=== PATIENT | male | born 1965 | race Caucasian/White ===

== ENCOUNTER 2021-12-06 15:16 | Outpatient (CLI) | payer BC, SELFPAY ==
[2021-12-06 18:05] LABS: Chloride* 102 mmol/L (96-114)
[2021-12-06 18:06] LABS: Potassium* 5.2 mmol/L (3.6-5.1); Sodium* 138 mmol/L (135-149)
[2021-12-06 18:08] LABS: Blood Urea Nitrogen* 16 mg/dL (7-30); Carbon Dioxide* 29 mmol/L (20-32); Cholesterol* 205 mg/dL (90-199); Creatinine* 1.3 mg/dL (0.5-1.5); Estimated Glomerular Filt Rate 65 ml/min
[2021-12-06 18:09] LABS: Calcium* 9.6 mg/dL (8.4-10.6); Glucose* 83 mg/dL (60-115); HDL Cholesterol* 66 mg/dL (>=40); LDL Cholesterol Calculated 113 mg/dL (<100); Triglycerides* 130 mg/dL (40-149)
[2021-12-06 18:37] LABS: PSA Screen* 1.43 ng/mL (0.10-4.00)
== END 2021-12-06 15:17 | disposition home or self-care (01) ==
PROVIDERS: PCP Family Medicine; Visit Provider Family Medicine
DX: E78.5 Hyperlipidemia, unspecified (principal); I25.10 Atherosclerotic heart disease of native coronary artery without angina pectoris; I51.3 Intracardiac thrombosis, not elsewhere classified; Z12.5 Encounter for screening for malignant neoplasm of prostate
CPT/HCPCS: 80048; 80061; 84153

== ENCOUNTER 2021-12-31 16:24 | Emergency (ER) | payer BC, SELFPAY ==
[2021-12-31 16:30] VITALS: BP 153/88; PULSE 74; RESP 20; TEMP 35.9; O2SAT 99; BMI 23.7
--- NOTE | 2021-12-31 16:40 | CRLHL7_ITS ---
For Patients: As a result of the Century Cures Act, medical imaging exams and procedure reports are released immediately into your electronic medical record. You may view this report before your referring provider. If you have questions, please contact your health care provider. Indication: Trauma. Technique: Right foot 3 views. Comparison: None. Findings/Impression: Bones: Acute transverse nondisplaced fracture present the proximal right 2nd metatarsal. No other osseous abnormality. Joint spaces: Unremarkable. Soft tissues: Unremarkable. Dictated by Osmar Méndez MD @ 12/31/2021 5:56:35 PM (Electronically Signed)
--- NOTE | 2021-12-31 16:54 | ED.GENADULT ---
HPI - General Adult General Chief complaint: Lower Extremity Swelling Stated complaint: Right foot injury Time Seen by Provider: 12/31/21 16:35 Source: patient History of Present Illness HPI narrative: Patient is a 56-year-old male here for evaluation of right foot pain. He says the ladder which was leaning up against the house tipped over and landed on his right foot. His left foot is fine. He has pain and swelling over the top of the midfoot. He has been walking on his heel since then. No other injuries or complaints. Related Data Home Medications Medication Instructions Recorded Confirmed multivitamin (Multiple Vitamins 1 tab PO QDAY 12/06/21 01/04/22 tablet) Previous Rx's Medication Instructions Recorded atorvastatin 80 mg tablet 80 mg PO .Bedtime #90 tabs 12/06/21 metoprolol succinate 50 mg 50 mg PO DAILY #90 tabs 12/06/21 tablet,extended release 24 hr nitroglycerin 0.4 mg sublingual 0.4 mg sublingual Q5-15M PRN chest 12/06/21 tablet pain #25 tabs rivaroxaban 20 mg tablet 20 mg PO DAILY #90 tabs 12/06/21 Allergies Allergy/AdvReac Type Severity Reaction Status Date / Time No Known Allergies Allergy Verified 01/04/22 13:16 Review of Systems Status of ROS: Reports: 6 or more systems reviewed and unremarkable except as noted in History and below [facility] Medical History History of cerebrovascular accident (CVA) due to embolism Surgical History History of cervical spinal arthrodesis History of coronary artery stent placement History of shoulder surgery (12/08/16) Social History Narrative: alcohol abuse Smoking Status: Never smoker Do you use any of these nicotine containing products: None How often do you have a drink containing alcohol: 2-3 times a week How many standard drinks containing alcohol do you have on a typical day: 3 or 4 How often do you have six or more drinks on one occasion: Less than monthly AUDIT-C Alcohol total score: 5 Non-prescribed substance use: marijuana (any form) Exam Narrative: Exam Narrative: Vital signs reviewed General, an alert, nontoxic male, lying in bed. Head: Normocephalic, atraumatic. Neck: Supple. Extremities: Left lower extremities atraumatic. On the right, the foot is swollen over the midfoot. Diffusely tender. No tenderness on the plantar aspect of the foot. Dorsalis pedis pulses intact. Ankle is nontender. Lower leg is nontender. Skin: Warm and dry. Intact. Const: Vital Signs, click to edit/add: Vital Signs - 24 hr 12/31/21 16:30 Temperature 96.7 F L Pulse Rate [Left P ulse Oximeter] 74 Respiratory Rate 20 Blood Pressure [Le ft Upper Arm] 153/88 H Pulse Oximetry 99 Oxygen Delivery Me thod Room Air Documenting provider has reviewed patient's vital signs: yes Course Course Hospital Course: X-rays of the right foot show by my review a nondisplaced fracture of the 2nd metatarsal. No other fractures seen on x-ray. Reviewed with him that x-rays do not always show all injuries initially. For now put him in a cam walker, crutches, weight-bearing as tolerated. Orthopedic followup. Ibuprofen or Tylenol as needed. Vital Signs Vital signs: Initial Vital Signs Temperature 96.7 F L 12/31/21 16:30 Temperature Source Temporal Artery Scan 12/31/21 16:30 Pulse Rate 74 12/31/21 16:30 Respiratory Rate 20 12/31/21 16:30 Blood Pressure 153/88 H 12/31/21 16:30 Blood Pressure Mean 109 12/31/21 16:30 Pulse Oximetry 99 12/31/21 16:30 Oxygen Delivery Method 12/31/21 16:30 Vital Signs Temperature 96.7 F L 12/31/21 16:30 Pulse Rate 74 12/31/21 16:30 Respiratory Rate 20 12/31/21 16:30 Blood Pressure 153/88 H 12/31/21 16:30 Pulse Oximetry 99 12/31/21 16:30 Oxygen Delivery Method 12/31/21 16:30 Temperature 96.7 F L 12/31/21 18:48 Pulse Rate 74 12/31/21 18:48 Respiratory Rate 20 12/31/21 18:48 Blood Pressure 153/88 H 12/31/21 18:48 Pulse Oximetry 99 12/31/21 16:30 Oxygen Delivery Method 12/31/21 16:30 Discharge Plan Discharge Clinical Impression: Fracture of metatarsal of right foot, closed Patient Disposition: Home, Self-Care Condition: Stable Instructions: Foot Fracture in Adults (ED) Additional Instructions: Ibuprofen or Tylenol as needed. Use the crutches, weight bear as tolerated, orthopedic follow-up next week: [facility] in [place] ([address] [place] [address]) [address] Quinn on 01/04/22 at 1:10pm. Prescriptions: No Action multivitamin [Multiple Vitamins] Tablet 1 tab PO QDAY atorvastatin 80 mg tablet 80 mg PO .Bedtime Qty: 90 3RF metoprolol succinate 50 mg tablet extended release 24 hr 50 mg PO DAILY Qty: 90 3RF nitroglycerin 0.4 mg tablet, sublingual 0.4 mg sublingual Q5-15M PRN (Reason: chest pain) Qty: 25 1RF Rx Instructions: MAX 3 DAYS. rivaroxaban 20 mg tablet 20 mg PO DAILY Qty: 90 3RF Rx Instructions: WITH MEAL Follow Up/Referrals: Ernesto Miles MD [Primary Care Provider] - Stand Alone Forms: [facility] Info Instructions
[2021-12-31 18:48] VITALS: BP 153/88; PULSE 74; RESP 20; TEMP 35.9
== END 2021-12-31 18:51 | disposition home or self-care (01) ==
LOC: ED 18:48
PROVIDERS: Emergency Provider Emergency Medicine; PCP Family Medicine
DX: S92.504A Nondisplaced unspecified fracture of right lesser toe(s), initial encounter for closed fracture (principal); W22.8XXA Striking against or struck by other objects, initial encounter
CPT/HCPCS: 73630; 99283

== ENCOUNTER 2022-11-18 13:55 | Emergency (ER) | payer BC, SELFPAY ==
[2022-11-18] VITALS (74 sets, daily range): BP systolic 77–133; BP diastolic 52–102; PULSE 64–248; RESP 10–40; TEMP 36.1; O2SAT 93–100
--- NOTE | 2022-11-18 | CRLHL7_ITS ---
For Patients: As a result of the Century Cures Act, medical imaging exams and procedure reports are released immediately into your electronic medical record. You may view this report before your referring provider. If you have questions, please contact your health care provider. INDICATION: Erect take heartbeat, fatigue, heart surgery 3 days ago TECHNIQUE: Chest 1 views COMPARISON: August 01, 2019 single-view chest FINDINGS: Cardiovascular and mediastinum: Heart size and vasculature are normal in caliber and appearance. New sternotomy wires Lungs and pleural spaces: Lungs are clear. No sign of infiltrate or mass. No sign of pleural effusion. No pneumothorax. Bones and soft tissues: Stable deformity mid right clavicle compatible with remote healed fracture. Postoperative change/metallic fusion plate at the cervicothoracic junction, otherwise no significant findings. IMPRESSION: No acute findings, interval postoperative change, otherwise and no significant changes from the prior exam. Dictated by Derrick Capone MD @ 11/18/2022 3:13:06 PM (Electronically Signed)
[2022-11-18] MEDS: 0.9 % SODIUM CHLORIDE 1000 ml 1,000 ML IV ×2 (14:00→14:08)
[2022-11-18] MEDS: ADENOSINE 6 MG/2ML INJ IVP (14:15)
[2022-11-18] MEDS: ADENOSINE 6 MG/2ML INJ 12 MG IVP (14:18)
[2022-11-18 14:23] LABS: Troponin, Point-of-Care* 0.09 ng/ml (0.01-0.04)
[2022-11-18 14:24] LABS: Basophils Percent Auto 0.2 % (0.0-3.0); Eosinophils Percent Auto 0.4 % (0.0-7.0); Hemoglobin* 17.2 gm/dL (13.5-17.5); Lymphocytes Percent Auto 19.9 % (20-44); Mean Corpuscular HGB Conc 34 gm/dL (32-36); Mean Corpuscular Hemoglobin 32 pg (26-34); Mean Corpuscular Volume 92 fL (80-100); Monocytes Percent Auto 6.9 % (0.0-11.0); Neutrophils Percent Auto 71.6 % (42.0-72.0); Platelet Count* 337 K/uL (140-440); Red Blood Count 5.46 m/uL (4.30-5.90); White Blood Count* 13.47 K/uL (4.50-11.00)
[2022-11-18 14:28] LABS: Slide Review Reflex No
[2022-11-18] MEDS: ETOMIDATE 2 MG/ML inj 15 MG IVP (14:28)
--- NOTE | 2022-11-18 14:31 | PC.NURSE ---
syncronized cardioversion successful at second attempt, first with 120j then 200j,
[2022-11-18 14:33] LABS: Chloride* 104 mmol/L (96-114)
[2022-11-18 14:34] LABS: Potassium* 4.1 mmol/L (3.6-5.1); Sodium* 137 mmol/L (135-149)
[2022-11-18] MEDS: MIDAZOLAM HCL 1 MG/ML inj IVP (14:34)
[2022-11-18] MEDS: AMIODARONE 50 MG/ML inj 150 MG in 5 % DEXTROSE 100 ML 100 ML 618 MG IVPB (14:34)
[2022-11-18 14:36] LABS: Creatinine* 1.8 mg/dL (0.5-1.5); Estimated Glomerular Filt Rate 44 ml/min; Partial Thromboplastin Time* 23 Seconds (23-33)
--- NOTE | 2022-11-18 14:36 | PC.NURSE ---
pt shivering, versed given, starting to arouse
[2022-11-18 14:37] LABS: Blood Urea Nitrogen* 14 mg/dL (7-30); Calcium* 9.6 mg/dL (8.4-10.6); Carbon Dioxide* 18 mmol/L (20-32); D Dimer Quantitative* 1.47 ug/ml (0.00-0.50); Glucose* 107 mg/dL (60-115)
--- NOTE | 2022-11-18 14:44 | PC.NURSE ---
pt awake, alert, and oriented, vss, states, I feel sleepy, pt resting, vss
[2022-11-18 14:49] LABS: NT Pro B Type NatriureticPept* 818 pg/mL
--- NOTE | 2022-11-18 15:21 | PC.NURSE ---
sleeping, pt arouses easily to voice
[2022-11-18 15:22] LABS: Magnesium* 2.2 mg/dL (1.5-2.6)
--- NOTE | 2022-11-18 15:23 | PC.NURSE ---
pt voided via urinal, urine sent to lab
--- NOTE | 2022-11-18 15:30 | ED.ARRPALP ---
HPI - Arrhythmia/Palpitations General Date Seen: 11/18/22 Chief Complaint: Arrhythmia/Palpitations Stated Complaint: possible heart attack or stroke Time Seen by Provider: 11/18/22 13:59 Source: patient Mode of arrival: ambulatory Limitations: no limitations History of Present Illness HPI narrative: Patient is a 57-year-old gentleman who walked into the emergency room, with approximately a 1 hour history of feeling unwell, he said he knew he was feeling unwell when he took his blood pressure. That gave him any E 5 error message. Is approximately 45 minutes away, and drove here at speed limit to the emergency room. He did stop in [place]. He was feeling very nauseous, he did not have any chest pain, mild shortness of breath, and sweaty. He does present here with a heart rate of 244. So wide tachycardia, that appears to be monomorphic. He has never had this before, but there is a history of a previous stent placement in 2011, and then cardiac surgery for aneurysm unspecified and thrombectomy. complaint: rapid heart beat, heart racing and skipped beats Onset (ago): hour(s) Duration: constant Severity: moderate Context: occurred during rest and occurred during exertion Associated symptoms: shortness of breath, nausea and diaphoresis Related Data Home Medications Medication Instructions Recorded Confirmed multivitamin (Multiple Vitamins 1 tab PO QDAY 12/06/21 11/18/22 tablet) Previous Rx's Medication Instructions Recorded atorvastatin 80 mg tablet 80 mg PO .Bedtime #90 tabs 12/06/21 metoprolol succinate 50 mg 50 mg PO DAILY #90 tabs 12/06/21 tablet,extended release 24 hr rivaroxaban 20 mg tablet 20 mg PO DAILY #90 tabs 12/06/21 nitroglycerin 0.4 mg sublingual See Rx Instructions .Route 02/10/22 tablet .COMPLEX #25 tabs Allergies Allergy/AdvReac Type Severity Reaction Status Date / Time No Known Allergies Allergy Verified 03/06/22 09:02 Review of Systems Status of ROS: Reports: 10 or more systems reviewed and unremarkable except as noted in History and below [facility] Medical History History of cerebrovascular accident (CVA) due to embolism ?Z86.73 - Personal history of transient ischemic attack (TIA), and cerebral infarction without residual deficits (ICD-10) Surgical History History of shoulder surgery (12/08/16) ?Z98.890 - Other specified postprocedural states (ICD-10) History of coronary artery stent placement ?Z95.5 - Presence of coronary angioplasty implant and graft (ICD-10) History of cervical spinal arthrodesis ?Z98.1 - Arthrodesis status (ICD-10) Social History Narrative: alcohol abuse Smoking Status: Never smoker Do you use any of these nicotine containing products: None How often do you have a drink containing alcohol: 2-3 times a week How many standard drinks containing alcohol do you have on a typical day: 3 or 4 How often do you have six or more drinks on one occasion: Less than monthly AUDIT-C Alcohol total score: 5 Non-prescribed substance use: marijuana (any form) Exam Narrative: Exam Narrative: Patient is initially seen in room 8, he appears to be have a regular rhythm at 244. Speaking to me normally alert and oriented x3, with the blood pressure that was reassuring initially. Little bit pale, pupils equal round reactive to light his TMs are normal his oropharynx is normal his chest is clear bilaterally with easy respirations heart sounds are very fast, but I do not hear any walk been murmurs. Abdomen is soft, there is no tenderness to palpation, moves all extremities independently and well, with some dirt on his right knee. Pulses are very rapid, and thready. Two IVs were initially started, he is placed on the disability insurance hearing officer, given oxygen, defibrillation pads are placed, along with the defibrillator. IV normal saline bolus was started. And he was given adenosine 6 and 12 mg with no change in his rhythm at all. Previously to this I did have him bear down and try to do a vagal maneuver with no change. At this point his blood pressure did drop into the 80 on 40 range. And he was complaining of some visual dimmimg, my initial thought was to give amiodarone 150 mg as he was stable but with this change he became unstable. I did get, the other ED doctor into the room to do my sedation. We gave him etomidate. And were able to shock him x2 with 200 joules, back to normal sinus rhythm with occasional PVCs, currently is getting amiodarone 150 mg IV. I was able to speak to [facility], as [facility] Gallegos was on divert. I spoke to Cardiology there, and they accepted him to their with a diagnosis of ventricular tachycardia. Improved. Const: Vital Signs, click to edit/add: Vital Signs - 24 hr 11/18/22 14:01 Temperature 97.0 F L Pulse Rate [Pulse Oximeter] 248 H Respiratory Rate 16 Blood Pressure [Le ft Upper Arm] 107/90 H Pulse Oximetry 97 Oxygen Delivery Me thod Room Air Course Course Hospital Course: Spoke to Dr. Gallardo at [facility], she accepted in transfer, discussed with Mono, he is doing fine now. Vital Signs Vital signs: Initial Vital Signs Respiratory Effort Normal, Spontaneous 11/18/22 14:00 Respiratory Depth Normal 11/18/22 14:00 Respiratory Pattern Normal 11/18/22 14:00 Vital Signs Temperature 97.0 F L 11/18/22 14:01 Pulse Rate 248 H 11/18/22 14:01 Respiratory Rate 16 11/18/22 14:01 Blood Pressure 107/90 H 11/18/22 14:01 Pulse Oximetry 97 11/18/22 14:01 Oxygen Delivery Method Room Air 11/18/22 14:01 Temperature 97.0 F L 11/18/22 14:01 Pulse Rate 248 H 11/18/22 14:01 Respiratory Rate 16 11/18/22 14:01 Blood Pressure 107/90 H 11/18/22 14:01 Pulse Oximetry 97 11/18/22 14:01 Oxygen Delivery Method Room Air 11/18/22 14:01 MDM - Arrhythmia/Palpitations MDM Narrative Medical decision making narrative: Differential diagnosis includes but is not limited to psychosocial stress, thyroid abnormalities, CHF, SVT, atrial fibrillation, ventricular tachycardia and ventricular fibrillation. This includes the life-threatening complications of heart failure, V-tach, and VFib Medical Records Attestation: I reviewed the patient's medical records. Lab Data Attestation: I reviewed the patient's lab results. Labs: Lab Results 11/18/22 Range/Units 14:05 WBC 13.47 H (4.50-11.00) K/uL RBC 5.46 (4.30-5.90) m/uL Hgb 17.2 (13.5-17.5) gm/dL Hct 50.0 (37.0-53.0) % MCV 92 (80-100) fL MCH 32 (26-34) pg MCHC 34 (32-36) gm/dL RDW Coeff of Fabio 12.0 (11.5-15.5) % Plt Count 337 (140-440) K/uL Neut % (Auto) 71.6 (42.0-72.0) % Lymph % (Auto) 19.9 L (20-44) % Bowie % (Auto) 6.9 (0.0-11.0) % Eos % (Auto) 0.4 (0.0-7.0) % Baso % (Auto) 0.2 (0.0-3.0) % Neut # (Auto) 9.60 H (1.7-7.0) K/uL Lymph # (Auto) 2.70 (0.90-2.90) K/uL Bowie # (Auto) 0.90 (0.00-0.90) K/UL Eos # (Auto) 0.10 (0.00-0.50) K/uL Baso # (Auto) 0.00 (0.00-0.30) K/uL Abs Immat Gran (auto) 0.10 (0.00-0.30) K/uL Imm/Tot Granulo (auto) 1.0 % APTT 23 (23-33) Seconds D-Dimer Quant (PE/DVT) 1.47 H (0.00-0.50) ug/ml Sodium 137 (135-149) mmol/L Potassium 4.1 (3.6-5.1) mmol/L Chloride 104 (96-114) mmol/L Carbon Dioxide 18 L (20-32) mmol/L BUN 14 (7-30) mg/dL Creatinine 1.8 H (0.5-1.5) mg/dL Estimated GFR 44 ml/min Glucose 107 (60-115) mg/dL Calcium 9.6 (8.4-10.6) mg/dL Magnesium 2.2 (1.5-2.6) mg/dL NT-Pro-B Natriuret Pep 818 pg/mL POC Troponin I 0.09 H (0.01-0.04) ng/ml Imaging Data Chest x-ray: Attestation: I have reviewed the pertinent imaging results. My impression: Portable chest shows no acute findings. ECG Data Attestation: I personally reviewed and interpreted this ECG as follows: Prior ECG tracings: available for review Interpretation: EKG shows monomorphic rapid wide base tachycardia 244. Repeat EKG after defibrillation shows normal sinus rhythm, with no acute ST wave changes. Critical Care Time Critical Care Time Critical Care Time: Yes Attestation: The patient required my highest level preparedness to intervene emergently and I personally spent this critical care time directly and personally managing the patient. This critical care time included: Obtaining a history; Examining the patient; Pulse oximetry; Ordering and reviewing of studies; Arranging urgent treatment with development of a management plan; Evaluation of patients response to treatment; Frequent reassessment discussions with other providers. This critical care time was performed to assess and manage the high probability of imminent life-threatening deterioration that could result in multiorgan failure. It was exclusive of separate billable procedures and treating other patients and teaching time. Total Critical Care Time in Minutes: 60 Discharge Plan Discharge Clinical Impression: Ventricular tachycardia Patient Disposition: [facility] Discharge Location: [facility] Condition: Improved
[2022-11-18 16:06] LABS: Lactate* 4.2 mmol/L (0.5-1.9)
[2022-11-18 16:28] LABS: INR 0.99 (0.91-1.10); Prothrombin Time 13.7 Seconds
[2022-11-18 16:29] LABS: Partial Thromboplastin Time* 24 Seconds (23-33)
[2022-11-18 16:32] LABS: D Dimer Quantitative* 1.35 ug/ml (0.00-0.50)
[2022-11-18 16:32] LABS: Amphetamine Screen Urine Negative (Negative); Barbiturate Screen Urine Negative (Negative); Benzodiazepines Screen Urine Negative (Negative); Cannabinoid Screen Urine POSITIVE (Negative); Cocaine Screen Urine Negative (Negative); Methadone Screen Urine Negative (Negative); Methamphetamines Screen Urine Negative (Negative); Opiate Screen Urine Negative (Negative); Oxycodone Screen Urine Negative (Negative); Phencyclidine Screen Urine Negative (Negative); Tricyclic Antidepressant Urine Negative (Negative)
--- NOTE | 2022-11-18 16:35 | PC.NURSE ---
pt has some vague recall of events before and after cardioversion, asking what all happened, pt reoriented and seems to understand, agreeable with plan to transfer
[2022-11-18 16:52] LABS: C Reactive Protein* < 0.5 mg/dL (0.5-1.0)
[2022-11-18 16:53] LABS: Ethanol* < 0.01 % (0.01-0.03)
--- NOTE | 2022-11-18 18:05 | PC.NURSE ---
pt left en route to [facility] via EMS, VSS, report given to Terri at [facility] [phone]
== END 2022-11-18 18:05 | disposition short-term general hospital (02) ==
PROVIDERS: Emergency Provider Family Medicine; PCP Family Medicine
DX: I47.20 Ventricular tachycardia, unspecified (principal)
CPT/HCPCS: 36415; 71045; 80048; 80306; 82077; 83605; 83735; 83880; 84484; 85025; 85379; 85610; 85730; 86140; 92960; 93005; 94761; 96365; 96375; 99152; 99285; 99291; J0153; J0282; J2250; J7030

== ENCOUNTER 2022-11-18 17:52 | Outpatient (CLI) | payer BC, SELFPAY | END 2022-11-18 17:53 | disposition home or self-care (01) | LOC: AMB 11-21 10:17 | PROVIDERS: PCP Family Medicine; Visit Provider Family Medicine | DX: R00.0 Tachycardia, unspecified (principal) | CPT/HCPCS: A0425; A0426; A0427 ==

== ENCOUNTER 2024-07-15 11:14 | Outpatient (CLI) | payer BC, SELFPAY | END 2024-07-15 11:15 | disposition home or self-care (01) | PROVIDERS: PCP Family Medicine; Visit Provider Family Medicine | DX: E78.5 Hyperlipidemia, unspecified (principal); Z13.1 Encounter for screening for diabetes mellitus; Z12.5 Encounter for screening for malignant neoplasm of prostate | CPT/HCPCS: 80048; G0103 ==

== ENCOUNTER 2024-09-30 13:00 | Outpatient (RCR) | payer BC, SELFPAY ==
--- NOTE | 2024-08-12 15:01 | PT.OPE ---
PT [facility] Outpatient Eval PT [facility] Outpatient Eval Start: 08/12/24 08:01 Freq: Status: Active Protocol: Document 08/12/24 08:02 LSL (Rec: 08/12/24 09:03 LSL [id number]) E-signed By Rody Schmitt PT Physical Therapy Outpatient Evaluation Insurance Information Recert Due Date 11/10/24 Insurance Name Medicaid,Blue Cross/[employer] Medical Diagnosis back pain M54.9 Treating Diagnosis pain, impaired ROM, impaired mobility, weakness Referring MD Benoit Subjective Preferred Name Mono Llamas Pt. reports he was lifting some boxes 30-40 pounds and he picked up some boxes and turned to his left. He had immediate onset of shooting pain from his low back into both legs. The pain radiated to his knees and he saw stars. Pt. was given Toradol and a muscle relaxer, but it out of those now. It's worst in the mornings. Gets a little better as the day goes on unless I sit still then I get stiff again. Pt. is avoiding activities because he is afraid he is going to hurt. Tylenol currently helps minimize pain. Pt. wants to be able to mow his lawn which takes 2.5 hours on a rider and weed whip which is heavier. PMH: Pacemaker placed 4-5 y/a due atrial fib, C5-7 fusion 6- 7 y/a, open heart surgery removed embolism after 3 L CVAs, then had one more R CVA Pain Comments 5/10 worst, 0/10 best Date of Last Physician Visit 07/30/24 Current Work Status Retired Precautions Treatment Precautions/Contraindications PACEMAKER Weight Bearing Status Full Weight Bearing Therapy Limitations/Systems Review Not Limited Objective Range of Motion AROM - flexion distal quads with pain, RLF 75% with pain L lumbar, LLF 50% with pain R, extension 25%, R rotation 30% with pain, L rotation 50% with pain PROM - PPU 40% with pain, B SKC and DKC 75% without pain Strength Ankle - extensor hallucis 5/5, DF 5/5 Knee - L HS 4+/5, L 5/5, B quads 5/5 Hip - R hip flexion 5/5, L 4+/ 5, abd 5/5, extension 3+/5 Trunk - upper abdominals 2+/5 with pain, extensors 2-/5 with pain Palpation R lumbar paraspinals, L lower lumbar paraspinals, R glut med , B QL Posture Decreased lordosis Sensation/Reflexes Reflexes - B patellar 3/3, R achilles 2/3, L achilles 3/3 SLR - + L 40, + R 45 Other/Pertinent Objective Joint Play - all lumbar PAs tender and immobile due to guarding worse L3-5, UPAs tender and 1/6 due to guarding Assessment Assessment/Impression Pt. is a 59 y/o who presents with newer onset acute LBP with muscle guarding and radicular pain. He has known history of cervical fusion and multiple heart conditions and CVAs. He presents with likely nerve compression that is resolving with time but is still very guarded muscularly and in his movement patterns. He will benefit from PT to improve his ROM and core strength which is currently poor. Treatment will consist of therex, NM re-ed, manual therapy and potentially dry needling if guarding doesn't subside with initial treatment . Primary Functional Limitations walking, lifting, twisting Plan of Care Rehabilitation Potential Good Physical Therapy Goals SHORT TERM GOALSL (4 weeks) 1. Pt. understands how to activate TA for spinal support in activities that cause an increase in pain. 2. Pt. to demonstrate 3/5 abdominal and back extensor strength. 3. Pt. to have 75% AROM with pain less than 3/10 to make putting socks and shoes on easier. ASSISTED GOALS: (8 weeks) 1. Pt. able to lift 30 pounds floor to waist with pain less than 3/10. 2. Pt. able to rotate freely with pain less than 3/10. Coordination/Communication With Referral Source Treatment Plan/Direct Interventions Dry Needling,Joint Mobilization,Manual Therapy, Neuromuscular Re-ed, Therapeutic Exercises Frequency/Duration 2x/week 6 weeks Patient Will Be Discharged From Therapy Completion of LTG(s),Skills Plateau,Independent w/HEP, Independently Progressing Evaluation Billing Untimed Code Treatment Minutes 40 Complexity Moderate Certification Information Initial Certification Date 08/12/24 Ending Certification Date 11/10/24 Provider Signature Required Yes Provider Signature Shows Agreement With POC & Medical Necessity Physician NPI Number Write NPI# Here Physician Comment/Change : Physician Signature & Date Requested Please Sign/Date Here
== END 2024-11-12 15:39 | disposition home or self-care (01) ==
PROVIDERS: PCP Family Medicine; Visit Provider Physician Assistant Medical
DX: M54.9 Dorsalgia, unspecified (principal); Z51.89 Encounter for other specified aftercare
CPT/HCPCS: 97110; 97140; 97162

== ENCOUNTER 2024-12-14 08:09 | Emergency (ER) | payer BC, SELFPAY ==
[2024-12-14] VITALS (7 sets, daily range): BP systolic 123–133; BP diastolic 75–96; PULSE 51–64; RESP 20; TEMP 36.4; O2SAT 94–98; BMI 23.2
--- OUTSIDE RECORDS SUMMARY | 2024-12-14 08:12 | XMS_ITS | Clinical Summary ---
Author Organization [facility] Address [address] [place] [address] Care Team Providers Care Injection Maintenance Technician Name Role Phone Elsewhere, Pcp Primary Care Provider Unavailabl e Source Comments Patient records contain information from all sites at [facility]. For routine questions regarding patient records, call [phone] during business hours, M-F 8:00 AM - 5:00 PM Central Time. Record requests for emergency care only can be directed to [phone] at any time.[facility] Allergies No known active allergies Medications * This document contains information received from the source organization and may not represent a complete record from that organization. nitroglycerin (NITROSTAT) 0.[address] 0.4 mg under the tongue every 5 (five) minutes as needed. Do not exceed a total of 3 doses in 15 minutes. 0 Active losartan (COZAAR) 25 mg tablet Take 1 tablet (25 mg total) by mouth daily. 0 Active acetaminophen (TYLENOL) 500 mg tablet Take 1,000 mg by mouth every 6 (six) hours as needed for pain. Active multivitamin-mi qwdcmd-BL-cwlnu hallie-lutein (CENTRUM SILVER) 0.4-300-250 mg-mcg-mcg tablet Take 1 tablet by mouth daily. Active sennosides-docu sate sodium (SENOKOT-S) 8.6-50 mg per tablet Take 1 tablet by mouth 2 (two) times a day. 1 Active rivaroxaban (XARELTO) 10 mg tablet Take 2 tablets (20 mg total) by mouth daily. Take to minimize the risk for developing a blood clot. After your last dose of this medication start taking aspirin if this was recommended. Take with food 180 tablet 3 1 Active aspirin 81 mg chewable tablet Chew 81 mg. 1 Active metoprolol succinate (TOPROL-XL) 50 mg 24 hr tablet Take 50 mg by mouth. 1 Active multivitamin tablet Take 1 tablet by mouth daily. 1 Active predniSONE (DELTASONE) 20 mg tablet Twice A Day 1 Active Active Problems Problem Noted Date Diagnosed Date Cardiomyopathy Ischemic 05/12/2020 Atrial Fibrillation Paroxysmal 05/12/2020 Stenosis Spinal Cervical 05/10/2020 Overview (05/10/2020): Added automatically from request for surgery [id number] Radiculopathy Cervical Seventh 05/07/2020 Nicotine Dependence 05/07/2020 Hypertension Essential Primary 03/03/2020 Hyperlipidemia Mixed 03/03/2020 Halfway (Current) Anticoagulant Treatment 02/08 Cerebral Infarction Due To E mbolism Left Middle Cerebral Artery 06/28/2017 Overview (05/12/2020): Secondary to LV thrombus without any neurological deficits. Found in the left insular teritory of the left MCA ST Elevation Myocardial Infarction Of Unspecifie d Site 01/29/2012 Overview (05/12/2020): 01/27/12- FREDDIE/ thrombectomy pLAD Pain Shoulder Right Resolved Problems Problem Noted Date Diagnosed Date Resolved Date Stroke 05/12/2020 05/12/2020 COVID-19 Infection 03/06/2020 1 Bradycardia 03/04/2020 05/12/2020 Pneumonia Due To COVID-19 03/03/2020 Hypoxia 03/02/2020 05/12/2020 Immunizations Immunization Administration Dates Next Due influenza vaccine quad (FLUZ ONE/FLUARIX) (6 months and older)(PF) 05/14/2020 Family History Medical History Relation Name Comments Throat cancer Father 1 Coronary artery disease Father 2 hari Hyperlipidemia Father 2 hari he Dec 0 2005 Relation Name Status Comments Father 1 Father 2 hari Social History Tobacco Use Types Packs/Day Years Used Date Smoking Tobacco: Never Cigarettes Smokeless Tobacco: Former Chew Quit: 10/25/2023 Comments:Has not been smokin g lately Alcohol Use Standard Drinks/Week Comments Not Currently 6 (1 standard drink = 0.6 oz pur e alcohol) Been sober for 1651 days [facility] Utilities Answer Date Recorded In the past 12 months has th e electric, gas, oil, or water company threatened to shut off services in your home? No 07/09/2024 Humiliation, Afraid, Rape, and Kick questionnair e Answer Date Recorded Within the last year, have y ou been afraid of your partner or ex-partner? No 05/06/2021 Within the last year, have y ou been humiliated or emotionally abused in other ways by your partner or ex-partner? No Within the last year, have y ou been kicked, hit, slapped, or otherwise physically hurt by your partner or ex-partner? No 05/06/2021 Within the last year, have y ou been raped or forced to have any kind of sexual activity by your partner or ex-partner? No 05/06/2021 Hunger Vital Sign Answer Date Recorded Within the past 12 months, y ou worried that your food would run out before you got the money to buy more. Never true 07/10/19 25 Within the past 12 months, t he food you bought just didn't last and you didn't have money to get more. Never true 07/09/2024 PRAPARE - Transportation Answer Date Re corded In the past 12 months, has l ack of transportation kept you from medical appointments or from getting medications? No 05/2024 In the past 12 months, has l ack of transportation kept you from meetings, work, or from getting things needed for daily living? No 07/09/2024 Housing Stability Answer Date Recorded What is your living situation today? I have a [facility] place to live 07/09/2024 Education Answer Date Recorded What is the highest level of school you have completed or the highest degree you have received? Associate degree: occupational, technical, or vocational program 05/12/2020 Sex and Gender Information Value Date Recorded Sex Assigned at Male 07/10/2024 12:51 PM CDT Legal Sex Male 9:32 PM ACADEMIC INTERVENTIONIST Gender Identity Male 06/23/2020 9:05 AM CDT Sexual Orientation Straight 07/10/2024 2: 25 PM CDT Last Filed Vital Signs Vital Sign Reading Time Taken Comments Blood Pressure 134/88 04/10/2024 2:30 PM ACADEMIC INTERVENTIONIST Pulse 54 04/10/2024 2:30 PM ACADEMIC INTERVENTIONIST Temperature 36.5 C (97.7 F) 04/10/2024 11:15 AM ACADEMIC INTERVENTIONIST Respiratory Rate 15 04/10/2024 2:30 PM ACADEMIC INTERVENTIONIST Oxygen Saturation 92% 04/10/2024 2:30 PM ACADEMIC INTERVENTIONIST Inhaled Oxygen Concentration - - Weight 68.1 kg (150 lb 2.1 oz) 02/04/2024 2:12 P M CDT Height 177.8 cm (5' 10) 02/04/2024 2:19 PM CDT Body Mass Index 21.54 02/04/2024 2:12 PM CDT Plan of Treatment Health Maintenance Due Date Last Done Comments CT Colonography 1967 Cologuard 1967 Colonoscopy 1967 Colorectal Cancer Screening 1967 FIT 1967 Hepatitis C Screening 1967 Office Visit for Blood Pressure Check / Re-check 1967 Hepatitis B Vaccines (1 of 3 - 19+ 3-dose series) 1986 Pneumococcal vaccine (50+ years) (1 of 2 - PCV) 1986 Zoster Vaccines (1 of 2) 2017 Depression Screening (Annual PHQ-2) 04/09/2024 Lipid (Cholesterol) Screening 08/03/2024 08/04/2023 COVID-19 Vaccine ( season) 2024 Influenza Vaccine (#1) 2024 05/14/2020 Creatinine Level (Kidney Function Test) 06/26/2025 06/26/2024, 04/10/2024, 02/04/2024, Additional history exists Potassium Level 06/26/2025 06/26/2024, 05/2024, 02/04/2024, Additional history exists Sodium Level 06/26/2025 06/26/2024, 05/2024, 02/04/2024, Additional history exists Fasting Glucose for Diabetes Screening 06/27/2027 06/26/2024, 04/10/2024, 02/04/2024, Additional history exists DTaP,Tdap,and Td Vaccines (3 - Td or Tdap) 09/13/2029 09/14/2019, 12/21/2010 IPV Vaccines Aged Out No longer eligi ble based on patient's age to complete this topic Medical Devices Implanted Type Area Human Resources Operations Coordinator Device Identifier Shelf Expiration Date Model / Serial / Lot [facility] - [id number] - [id number] Implanted:Q ty: 1 on 05/13/2020 by Marky Newman M.D. at [facility] Bone or Tissue Anterior: Spine Cervical Medtronic 01/25/2022 [id number] / [id number] / Hardware E.G. Pins/Screws /Rods-2017 Implanted:0 10/04/2017 (Quantity not on file) Hardware e.g. pins/screws/emma s Right: Shoulder Spn Plt Tomy L2 30 - [id number] Implanted:Q ty: 1 on 05/13/2020 by Marky Newman M.D. at [facility] Hardware e.g. pins/screws/emma s Anterior: Spine Cervical Depuy Synthes [id number] / / Spn Scrw Tomy Sfdr Thrd 4x14 - [id number] Implanted:Q ty: 5 on 05/13/2020 by Marky Newman M.D. at [facility] Hardware e.g. pins/screws/emma s Anterior: Spine Cervical Depuy Synthes [id number] / / Spn Scrw Tomy Sfdr Thrd 4.5x14 - [id number] Implanted:Q ty: 1 on 05/13/2020 by Marky Newman M.D. at [facility] Hardware e.g. pins/screws/emma s Anterior: Spine Cervical Depuy Synthes [id number] / / Medtronic Hiawassee Xt Dr [id number] Implant Cardiac Defibrillator Medtronic COBALT XT / [id number] / Spn Cg Cndt Cif 6mm 8d S - [id number] Implanted:Q ty: 1 on 05/13/2020 by Marky Newman M.D. at [facility] Spine Implant Anterior: Spine Cervical Depuy Synthes [id number] / / [id number] Spn Cg Cndt Cif 6mm 8d S - [id number] Implanted:Q ty: 1 on 05/13/2020 by Marky Newman M.D. at [facility] Spine Implant Anterior: Spine Cervical Depuy Synthes [id number] / / [id number] Stent Other-02/03 Implanted:1 (Quantity not on file) Stent Other Heart Description:coronary artery stent/No card Explanted Type Area Human Resources Operations Coordinator Device Identifier Shelf Expiration Date Model / Serial / Lot Spn Bharti Leone Thrd 4x14 - [id number] Implanted:Se Marky amaya M.D. (Quantity not on file) Explanted:Qt y: 1 on 05/13/2020 by Marky Newman M.D. at [facility] Hardware e.g. pins/screws /rods Anterior: Spine Cervical Depuy Synthes [id number] / / Procedures Procedure Name Priority Date/Time Associated Diagnosis Comments BASIC METABOLIC PANEL, S/P STAT 04/10/2024 11:12 AM ACADEMIC INTERVENTIONIST from Last 3 Months or Most Recently Relevant to Health Maintenance Results * (ABNORMAL) Basic Metabolic Panel (04/10/2024 11:12 AM ACADEMIC INTERVENTIONIST) Pathologist [facility] Potassium, P 4.2 3.6 - 5.2 mmol/L 04/10/2024 11:37 AM ACADEMIC INTERVENTIONIST [facility] Sodium, P 141 135 - 145 mmol/L 04/10/2024 11:37 AM ACADEMIC INTERVENTIONIST [facility] Chloride, P 105 98 - 107 mmol/L 04/10/2024 11:37 AM ACADEMIC INTERVENTIONIST [facility] Bicarbonate, P 26 22 - 29 mmol/L 04/10/2024 11:37 AM ACADEMIC INTERVENTIONIST [facility] Anion Gap, P 10 7 - 15 04/10/2024 11:37 AM ACADEMIC INTERVENTIONIST [facility] BUN (Blood Urea Nitrogen), P 14 8 - 24 mg/dL 04/10/2024 11:37 AM ACADEMIC INTERVENTIONIST [facility] Creatinine 1.18 0.74 - 1.35 mg/dL 04/10/2024 11:37 AM ACADEMIC INTERVENTIONIST [facility] Estimated GFR (eGFR) 72 >=60 mL/min/BSA 04/10/2024 11:37 AM ACADEMIC INTERVENTIONIST [facility] Comment: Estimated GFR calculated using the 2020 CKD_EPI creatinine equation. Calcium, Total, P 9.3 8.6 - 10.0 mg/dL 04/10/2024 11:37 AM ACADEMIC INTERVENTIONIST [facility] Glucose, P 69(L) 70 - 140 mg/dL 04/10/2024 11:37 AM ACADEMIC INTERVENTIONIST [facility] Blood (Blood, Venous) 04/10/2024 11:12 AM ACADEMIC INTERVENTIONIST 04/10/2024 11:16 AM ACADEMIC INTERVENTIONIST Brandin Edwards M.D. LAB BLOOD ADD-ON Final Resul t [facility] [address] [place] [address], [facility] [place] [address] [place] [address] from Last 3 Months or Most Recently Relevant to Health Maintenance Insurance [facility] [place] [address] Advance Directives For more information, please contact: [phone] * Full Code (Latest Code Status on File) Date Activated Date Inactivated Comments 03/03/2020 12:12 PM 03/05/2020 3:41 PM Question Answer Comments Full Code: Discussed Care Teams Injection Maintenance Technician Relationship Specialty Start Date End Date Elsewhere, Pcp PCP - General Internal Medicine 06/04/19
--- OUTSIDE RECORDS SUMMARY | 2024-12-14 08:12 | XMS_ITS | Clinical Summary ---
Author Organization [facility] Address [address] [place] [id number] Care Team Providers Care Process Owner Name Role Phone Ernesto Miles MD Primary Care Provider [phone] Key Balderas CAREERS ADVISER Unavailable [phone] Allergies No known active allergies Medications nitroglycerin (NITROSTAT) 0.[address] 0.4 mg under the tongue every 5 minutes if needed. 0 Active amiodarone (CORDARONE) 200 mg tabletIndication s:life-threateni ng ventricular tachycardia Take 1 Tablet (200 mg) by mouth once daily. 30 Tablet 08/05/2023 9:05 AM CDT 4 Active rosuvastatin (CRESTOR) 20 mg tabletIndication s:Hypercholester emia Take 1 Tablet (20 mg) by mouth once daily. 90 Tablet 3 4 Active valsartan 40 mg tabletIndication s:Ventricular tachycardia (HC),Cardiomyopa thy, ischemic,Left ventricular thrombus without LA (HC),ASHD (arterioscleroti c heart disease) Take 1 Tablet (40 mg) by mouth two times daily. 180 Tablet 3 5 Active spironolactone 25 mg tabletIndication s:Ventricular tachycardia (HC),Cardiomyopa thy, ischemic,Left ventricular thrombus without LA (HC),ASHD (arterioscleroti c heart disease) Take 1/2 tablet by mouth daily 45 Tablet 3 5 Active empagliflozin (Jardiance) 10 mg tabletIndication s:Ventricular tachycardia (HC),Cardiomyopa thy, ischemic,Left ventricular thrombus without LA (HC),ASHD (arterioscleroti c heart disease) Take 1 Tablet (10 mg) by mouth once daily. 90 Tablet 3 5 Active metoprolol succinate 25 mg Sustained-Releas e tabletIndication s:Cardiomyopathy , ischemic Take 1 Tablet (25 mg) by mouth once daily. 30 Tablet 11 5 Active Eliquis 5 mg tabletIndication s:LV (left ventricular) mural thrombus TAKE 1 TABLET(5 MG) BY MOUTH TWICE DAILY 180 Tablet 5 Active apixaban (Eliquis) 5 mg tabletIndication s:LV (left ventricular) mural thrombus Take 1 Tablet (5 mg) by mouth two times daily. 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 - scheduled for excision of apical LV mass 02/28/2021 Cerebrovascular accident (CVA) 06/28/2017 Overview (02/22/2021): - CVA 2018: Secondary to LV thrombus without any neurological deficits. Found in the left insular teritory of the left MCA * started warfarin at that time - May 2020 switched to Xarelto by Hematology at [facility]: admitted not always compliant with warfarin - November 2020 2nd CVA * brain MRI on December 02, 2020: confirmed the presence of acute infarct involving the posterior left insula and cortically within the left parietal lobe; chronic appearing infarct cortically in the neck area medial aspect of the left superior frontal gyrus Headache 06/27/2017 Examination of participant i n clinical trial- [employer] Trial cardiosphere-derived stem cells 03/28/2012 HTN (hypertension) 03/28/2012 Dyslipidemia 03/28/[address] elevation myocardial infarction ([place] [facility]) 01/29/2012 Overview (01/29/2012): 01/27/12- FREDDIE/ thrombectomy pLAD Cardiomyopathy, ischemic 01/29/2012 Overview (02/22/2021): - 01/27/12- EF 35%, akinesis anterior wall/ apex - 03/12/12 CMR: EF 48% - 01/19/2021 cMRI Ischemic cardiomyopathy with severe left ventricular dysfunction, LVEF 33%. A. Normal LV volumes and apical dyskinesis (apical aneurysm). - Resolved Problems Problem Noted Date Diagnosed Date Resolved Date LV (left ventricular) mural thrombus following LA 06/27/2017 06/28/2017 Examination of participant o r control in clinical research 04/10/2012 03/30/2017 Encounters Date Type Department Care Team Description 09/23/2024 Refill [facility] [address] [place] [address] [address] [place] [address] Kain Coe MD Refill Request 09/21/2024 Refill [facility] [address] [place] [address] Senait Walker PA Refill Request (Eliquis) from Last 3 Months Immunizations Immunization Administration Dates Next Due Influenza, IIV4 05/14/2020 Tdap 09/14/2019,12/21/2010 Family History Medical History Relation Name Comments Throat cancer Father Relation Name Status Comments Father Social History Tobacco Use Types Packs/Day Years Used Date Smoking Tobacco: Never Smokeless Tobacco: Current Chew Tobacco Cessation:Counseling Given: Yes Alcohol Use Standard Drinks/Week Comments Not Currently 0 (1 standard drink = 0.6 oz pur e alcohol) 2 times / month, 3-4 drinks PHQ-2 Answer Date Recorded PHQ-2 TOTAL SCORE 1 05/03/2021 Social Connections Answer Date Recorded Do you often feel lonely or isolated from those around you? 0 08/04/2023 Financial Resource Strain Answer Date R ecorded Difficulty of Paying Living Expenses 3 08/04/2023 Difficulty of Paying Living Expenses Not on file 08/04/2023 Food Insecurity Answer Date Recorded Do you worry your food will run out before you are able to buy more? 1 08/04/2023 Transportation Needs Answer Date Record ed Does lack of transportation keep you from medica l appointments? 1 08/04/2023 Does lack of transportation keep you from work, meetings or getting things that you need? 1 08/04/2023 Housing Stability Answer Date Recorded What is your housing situation today? 1 08/04/2023 Interpersonal Safety Answer Date Record ed Are you being hit, kicked, p ushed or yelled at (see row info)? No 08/04/2023 Interpersonal Safety Abuse 12 - 18 Not on file 08/04/2023 Interpersonal Safety Ambulatory Vulnerability No t on file 08/04/2023 Utilities Answer Date Recorded Do you have trouble paying f or utilities (for example, heat, electricity, water, phone)? 1 08/04/2023 Sex and Gender Information Value Date Recorded Sex Assigned at Not on file Legal Sex Male 6:02 AM SOLAR PHOTOVOLTAIC CREW LEAD Gender Identity Not on file Sexual Orientation Not on file Obstetrics History Last Filed Vital Signs Vital Sign Reading Time Taken Comments Blood Pressure 120/86 06/30/2024 9:51 AM CDT Pulse 80 06/30/2024 9:51 AM CDT Temperature 37.1 C (98.7 F) 08/04/2023 3:52 PM CDT Respiratory Rate 16 08/04/2023 3:52 PM CDT Oxygen Saturation 98% 06/30/2024 9:51 AM CDT Inhaled Oxygen Concentration - - Weight 73.5 kg (162 lb) 06/30/2024 9:51 AM CDT Height 177.8 cm (5' 10) 06/30/2024 9:51 AM CDT Body Mass Index 23.24 06/30/2024 9:51 AM CDT Plan of Treatment Health Maintenance Due Date Last Done Comments Hepatitis B series for 19+ ( 1 of 3 - 19+ 3-dose series) 1986 Pneumococcal series for age 50+ (1 of 2 - PCV) 1986 Colonoscopy through age 75 2012 Zoster (shingles) series for age 50+ (1 of 2) 2017 Depression screening for age 12+ 04/20/2022 04/20/19, 03/10/2021 COVID-19 vaccine series ( - 2023- season) 2024 Influenza Vaccine (#1) 2024 05/14/2020 BMI (ht and wt on same day) for age 18+ 06/30/2025 06/30/2024, 01/11/2024, 04/28/2021, Additional history exists Lipids for age 45-75 08/03/2028 08/04/2023, 03/28/2012, 01/27/2012 Tetanus booster 09/13/2029 09/14/2019, 12/21/2010 RSV vaccine for adults or (1 - 1-dose 75+ series) 2042 HIV for age 15-65 Completed 03/18/2012 Hepatitis C screening for ag e 18-79 Completed 03/18/2012 Medical Devices Implanted Type Area Behavioral Geneticist Device Identifier Shelf Expiration Date Model / Serial / Lot Tissue Pericardium 6x8cm Photofix Bovine - [id number] Implanted:Qty: 1 on 02/28/2021 by Myron Vera MD at [facility] N/A: Heart [employer] 11/20/2022 PFP [id number] / / [id number] Procedures Procedure Name Priority Date/Time Associated Diagnosis Comments LIPID PANEL Early AM 08/04/2023 10:06 AM CDT ANTI HIV 1/2 Timed 03/18/2012 10:52 AM SOLAR PHOTOVOLTAIC CREW LEAD ANTI HCV Timed 03/18/2012 10:52 AM SOLAR PHOTOVOLTAIC CREW LEAD from Last 3 Months or Most Recently Relevant to Health Maintenance Results * (ABNORMAL) Lipid Panel (08/04/2023 10:06 AM CDT) CHOLESTEROL,TOTAL 239(H) 100 - 199 mg/dL 08/04/2023 11:15 AM [facility] Comment: Cholesterol, Total Reference Ranges Desirable <200 mg/dL Borderline 200-239 mg/dL High >=240 mg/dL TRIGLYCERIDES 194(H) <150 mg/dL 08/04/2023 11:15 AM [facility] HDL CHOLESTEROL 57 >40 mg/dL 11:15 AM [facility] NON-HDL CHOLESTEROL 182(H) <145 mg/dl 08/04/2023 11:15 AM [facility] CHOL/HDL RATIO 4.19 <4.50 08/04/2023 11:15 AM [facility] LDL CHOLESTEROL 143(H) <=130 mg/dL 08/04/2023 11:15 AM [facility] VLDL CHOLESTEROL 39(H) <=30 mg/dL 08/04/2023 11:15 AM [facility] PROVIDER ORDERED STATUS RANDOM 08/04/2023 11:15 AM [facility] Blood BLOOD SPECIMEN / Unknown Butterfly / Unknown 08/04/2023 10:06 AM CDT 08/04/2023 10:51 AM T Derick Hill DO CHEMISTRY Fi nal Result [facility] SENDOUT INTERNAL ZIP [id number] [place] [address] * ANTI HCV (03/18/2012 10:52 AM SOLAR PHOTOVOLTAIC CREW LEAD) ANTI HCV Non-reacti ve [facility] 03/18/2012 10:5 2 AM SOLAR PHOTOVOLTAIC CREW LEAD 03/18/2012 11:11 AM SOLAR PHOTOVOLTAIC CREW LEAD us Doctor Unknown SEND OUTS Final Result [facility] INTERNAL ZIP [id number] [address] [place] [address] * ANTI HIV 1/2 (03/18/2012 10:52 AM SOLAR PHOTOVOLTAIC CREW LEAD) ANTI HIV 1/2 Non-reacti ve [facility] 03/18/2012 10:5 2 AM SOLAR PHOTOVOLTAIC CREW LEAD 03/18/2012 11:11 AM SOLAR PHOTOVOLTAIC CREW LEAD us Doctor Unknown SEND OUTS Final Result [facility] INTERNAL ZIP [address] [address] [place] [address] from Last 3 Months or Most Recently Relevant to Health Maintenance Insurance Office [employer] [place] BLUE ADVANTAGE M[employer]ARE MA INMATE BILLING [facility] WC [employer] CUSTODIAN INSURANCE * Guarantor: [employer] Account Type Relation to Patient Date of Phone Billing Address [facility] [address] ATTN ACCTS PAYABLE [address] [place] [address] Advance Directives * Full Code (Latest Code Status on File) Date Activated Date Inactivated Comments 08/03/2023 11:48 PM 08/04/2023 10:05 PM Question Answer Comments Code Status Discussion: Reviewed Preferences * Full Code Date Activated Date Inactivated Comments 11/18/2022 7:06 PM 11/22/2022 12:53 PM Question Answer Comments Code Status Discussion: Reviewed Preferences * Full Code Date Activated Date Inactivated Comments 02/28/2021 10:12 AM 03/04/2021 1:57 PM Question Answer Comments Code Status Discussion: Reviewed Preferences * Full Code Date Activated Date Inactivated Comments 02/22/2021 9:15 AM 02/22/2021 5:13 PM Question Answer Comments Code Status Discussion: Reviewed Preferences * Full Code Date Activated Date Inactivated Comments 06/27/2017 7:15 PM 06/28/2017 6:52 PM Question Answer Comments Code Status Discussion: Discussed Care Teams Process Owner Relationship Specialty Start Date End Date Ernesto Miles MD PCP - General Family Practice 01/27/12 Key Balderas NP [address] [facility] [address] [place] [address] Nurse Practitioner Cardiology - Electrophysiology 07/04/23
--- NOTE | 2024-12-14 08:16 | CT_ITS ---
Patient: LEON WELCH Facility:?[facility] RIS Patient ID:?[id number] Site Patient ID:?[id number]. Site :?[id number] Study:?CT-Head Angio STROKE CODE; WITH 95 CC ISOVUE 370-12/14/2024 8:57:28 AM Ordering Physician:Marcia Roche Final Report: INDICATION: Acute stroke, right-sided numbness. TECHNIQUE: CTA head using intravenous contrast with bolus tracking, 3D angiographic rendering using maximum intensity projection (MIP) and images permanently archived. CTA neck using intravenous contrast with bolus tracking, 3D angiographic rendering using maximum intensity projection (MIP) and images permanently archived. FINDINGS: CTA head: There is normal opacification of the intracranial vasculature. There is no large vessel occlusion or significant intracranial stenosis. No aneurysm is identified. CTA neck: There is no significant carotid artery stenosis or dissection. There is no significant vertebral artery stenosis or dissection. IMPRESSION: No acute intracranial abnormality at CTA. No significant carotid or vertebral artery stenosis or dissection. Please note that all CT scans at this facility use dose modulation, iterative reconstruction, and/or weight-based dosing when appropriate to reduce radiation dose to as low as reasonably achievable. Dictated by Kike Edmondson MD @ 12/14/2024 1:11:21 PM Signed by:?Kike Edmondson MD @12/14/2024 1:11:21 PM (Electronic Signature)
--- NOTE | 2024-12-14 08:17 | CRLHL7_ITS ---
For Patients: As a result of the Century Cures Act, medical imaging exams and procedure reports are released immediately into your electronic medical record. You may view this report before your referring provider. If you have questions, please contact your health care provider. INDICATION: Right-sided numbness, previous stroke in July 2023 TECHNIQUE: Noncontrast axial CT of the head. Coronal and sagittal reformats. Bone and soft tissue algorithms. COMPARISON: CT head report 09/14/2019 FINDINGS: Small areas of encephalomalacia and gliosis are noted at the left inferior parietal lobule and medial left frontal lobe, compatible with remote infarcts. Montoya-white matter differentiation is otherwise grossly preserved. No acute intracranial hemorrhage, midline shift, hydrocephalus or herniation. Unremarkable midline structures. Calcific intracranial atherosclerotic plaquing. Intact calvarium. Clear paranasal sinuses and mastoid air cells. Unremarkable orbits. IMPRESSION: 1. No CT evidence of acute intracranial abnormality. 2. 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 Please note that all CT scans at this facility use dose modulation, iterative reconstruction, and/or weight-based dosing when appropriate to reduce radiation dose to as low as reasonably achievable. Dictated by Prema Garcia MD @ 12/14/2024 9:06:54 AM (Electronically Signed)
--- NOTE | 2024-12-14 08:19 | ED.GENADULT ---
HPI - General Adult General Chief complaint: Neuro Symptoms/Altered Deficit Stated complaint: numbness - right arm and right leg Time Seen by Provider: 12/14/24 08:12 History of Present Illness HPI narrative: Patient is a 59 year white male has had history of ventricular tachycardia for which he was cardioverted, has history of ventricular mural thrombus he is on blood thinner, and he has had a history of a stroke he does not recall what kind, or when. He thinks was a few years ago. He has been on the blood thinner as mention he has not missed any, last night he felt some numbness in his right arm from about his shoulder down to his hand diffusely in his hand. Today noticed some numbness in his right leg. He has noticed no weakness in his arm or leg. No facial in inequality, no weakness in his arms or legs, no focal neurologic finding or word-finding inability. He has had no chest pain or shortness of breath. No illness, fever, other concerns. He walks into the emergency department. On presentation he was evaluated and sent to the CT scanner for CT CTA of his head neck. Tele stroke consult called. Related Data Home Medications ?Medication ?Instructions ?Recorded ?Confirmed multivitamin (Multiple Vitamins 1 tab PO QDAY 12/06/21 12/14/24 tablet) rosuvastatin 20 mg tablet 20 mg PO QPM 07/15/24 12/14/24 spironolactone 25 mg tablet 12.5 mg PO DAILY 07/15/24 12/14/24 valsartan 40 mg tablet mg PO BID 07/15/24 07/30/24 empagliflozin 10 mg tablet 10 mg PO DAILY 07/30/24 12/14/24 (Jardiance) Previous Rx's ?Medication ?Instructions ?Recorded nitroglycerin 0.4 mg sublingual See Rx Instructions .Route 02/10/22 tablet .COMPLEX #25 tabs amiodarone 200 mg tablet 200 mg PO QDAY #90 tabs 06/30/24 metoprolol succinate 25 mg 25 mg PO DAILY #30 tabs 07/31/24 tablet,extended release 24 hr apixaban 5 mg tablet (Eliquis) 5 mg PO BID #60 tabs 08/26/24 tizanidine 4 mg tablet 4 mg PO Q8H PRN muscle spasticity 10/27/24 #30 tabs Allergies Allergy/AdvReac Type Severity Reaction Status Date / Time acetaminophen (From Percocet) Allergy Unknown N/V Verified 07/30/24 13:45 oxycodone (From Percocet) Allergy Unknown N/V Verified 07/30/24 13:45 Review of Systems Status of ROS: Reports: 6 or more systems reviewed and unremarkable except as noted in History and [facility] History Aneurysm of heart ?I25.3 - Aneurysm of heart (ICD-10) Metatarsal fracture ?S92.309A - Fracture of unspecified metatarsal bone(s), unspecified foot, initial encounter for closed fracture (ICD-10) History of cerebrovascular accident (CVA) due to embolism ?Z86.73 - Personal history of transient ischemic attack (TIA), and cerebral infarction without residual deficits (ICD-10) Surgical History Status post internal cardiac defibrillator procedure ?Z95.810 - Presence of automatic (implantable) cardiac defibrillator (ICD-10) History of shoulder surgery (12/08/16) ?Z98.890 - Other specified postprocedural states (ICD-10) History of coronary artery stent placement ?Z95.5 - Presence of coronary angioplasty implant and graft (ICD-10) History of cervical spinal arthrodesis ?Z98.1 - Arthrodesis status (ICD-10) Social History Narrative: Single Retired No children Never smoke Alcohol abuse What is your current living situation?: I presently have a place to live Problems where you live: no known problems In the past 12 months, utilities in danger of being shut off: no In past 12 months, lack of transportation kept you from medical appts, meetings, work, or getting things needed for daily living: no In the past 12 mos, have been you worried that your food would run out before you had money to buy more?: never true In the past 12 mos, the food you bought just didn't last and you didn't have money to buy more?: never true Smoking Status: Never smoker Do you use any of these nicotine containing products: None How often do you have a drink containing alcohol: 2-3 times a week How many standard drinks containing alcohol do you have on a typical day: 3 or 4 How often do you have six or more drinks on one occasion: Less than monthly AUDIT-C Alcohol total score: 5 Non-prescribed substance use: marijuana (any form) How often does anyone, including family, friends and others, physically hurt you: never How often does anyone, including family, friends and others, insult or talk down to you: never How often does anyone, including family, friends and others, threaten you with harm: never How often does anyone, including family, friends and others, scream or curse at you: never Exam Narrative: Exam Narrative: Objective: In general patient is in no apparent distress he is talkative interactive. No facial asymmetry, word-finding is normal, mental status is normal. Mouth protrudes midline, mouth is clear Neck is supple for range of motion Lungs clear Heart rate and rhythm regular 2/6 systolic murmur Abdomen benign soft nontender Extremities are no edema neurologic nonfocal upper extremities he has no pronator drift he has normal grasp wrist strength in his upper extremities and normal strength in his lower extremities to flexion extension is knees and hips. Also at his ankles. Const: Vital Signs, click to edit/add: Vital Signs - 24 hr 12/14/24 08:10 12/14/24 08:23 12/14/24 08:26 Temperature 97.5 F L Pulse Rate Pulse Rate [Pulse Oximeter] 64 Respiratory Rate 20 Blood Pressure 126/96 H 133/84 Blood Pressure [Ri ght Upper Arm] 132/81 Pulse Oximetry 97 Oxygen Delivery Me thod Room Air 12/14/24 09:04 12/14/24 09:05 12/14/24 09:15 Temperature Pulse Rate 51 L 51 L 51 L Pulse Rate [Pulse Oximeter] Respiratory Rate Blood Pressure 124/90 H Blood Pressure [Ri ght Upper Arm] Pulse Oximetry 98 97 95 Oxygen Delivery Me thod 12/14/24 09:16 Temperature Pulse Rate 51 L Pulse Rate [Pulse Oximeter] Respiratory Rate Blood Pressure 123/75 Blood Pressure [Ri ght Upper Arm] Pulse Oximetry 94 Oxygen Delivery Me thod Course Vital Signs Vital signs: Initial Vital Signs Temperature 97.5 F L 12/14/24 08:10 Temperature Source Temporal Artery Scan 12/14/24 08:10 Pulse Rate 64 12/14/24 08:10 Respiratory Rate 20 12/14/24 08:10 Blood Pressure 132/81 12/14/24 08:10 Blood Pressure Mean 98 12/14/24 08:10 Pulse Oximetry 97 12/14/24 08:10 Oxygen Delivery Method Room Air 12/14/24 08:10 Vital Signs Temperature 97.5 F L 12/14/24 08:10 Pulse Rate 64 12/14/24 08:10 Respiratory Rate 20 12/14/24 08:10 Blood Pressure 132/81 12/14/24 08:10 Pulse Oximetry 97 12/14/24 08:10 Oxygen Delivery Method Room Air 12/14/24 08:10 Temperature 97.5 F L 12/14/24 08:10 Pulse Rate 51 L 12/14/24 09:16 Respiratory Rate 20 12/14/24 08:10 Blood Pressure 123/75 12/14/24 09:16 Pulse Oximetry 94 12/14/24 09:16 Oxygen Delivery Method Room Air 12/14/24 08:10 Medications Administered Medications: Discontinued Medications Generic Name Dose Route Start Last Admin Trade Name Freq PRN Reason Stop Dose Admin Sodium Chloride 500 mls @ 500 mls/hr 12/14/24 08:16 12/14/24 09:04 0.9 % Sodium Chloride 500 Ml IV 12/14/24 09:15 500 mls/hr .Q1H ONE Administration Medical Decision Making [facility] Narrative Medical decision making narrative: [age] year white male with a history of a stroke, with a history of a ventricular aneurysm was resected, implanted pacemaker/defibrillator, and coronary artery disease with a stent presents with right arm and leg numbness dysesthesia. The patient reported this started and his arm last night in his leg today. He reports he has had some blurry vision intermittently over the last few weeks as well. No other specific neurologic complaints. No headache or visual problem right now. At this point will get a CT CTA of the head neck, will call tele stroke code will have them evaluate. Will check labs, EKG, put the patient on associate software developer and oximeter. Will give him IV fluid hydration with saline. Check electrolytes. Check a troponin for completeness. Will also check on nasal viral swab. Disposition pending findings above and stroke neurologist recommendations. Addendum 8:30 a.m.: Discussed with stroke neurology Dr. Townsend, he will follow up the CT CTA. At this point given the patient is on apixaban he did not feel there was much more we can do at this time. Especially given its not weakness but more a dysesthesia. He recommended looking up the CTA and CT and he will follow that up and call back and we will discuss ongoing care. Patient will get the above-mentioned studies done. Addendum 9:[address] patient's CT CTA per That her stroke neurology confirm that he has got good looking vessels, he has got old stroke. He recommended adding baby aspirin daily to his regimen. This will be given here in the ER, he will start 81 mg aspirin and continue his anticoagulant. Would recommend he see his doctor within the next few days and get an MRI scan of his head. His decision in discussion with stroke neurology was that he did not want to be transferred for an urgent MRI. I think that is reasonable. He appears to be in a paced rhythm and he has been taking his anticoagulant. Would recommend rest light activity fluids at the aspirin 81 mg to his regimen and follow up with regular doctor in the next 2-3 days sooner to the ER problems or concerns. Lab Data Labs: Lab Results 12/14/24 12/14/24 12/14/24 Range/Units 08:17 08:25 08:35 WBC 5.85 (4.50-11.00) K/uL RBC 5.15 (4.30-5.90) m/uL Hgb 16.0 (13.5-17.5) gm/dL Hct 47.5 (37.0-53.0) % MCV 92 (80-100) fL MCH 31 (26-34) pg MCHC 34 (32-36) gm/dL RDW Coeff of Fabio 11.5 (11.5-15.5) % Plt Count 213 (140-440) K/uL Neut % (Auto) 60.7 (42.0-72.0) % Lymph % (Auto) 30.1 (20-44) % [place] % (Auto) 7.5 (0.0-11.0) % Eos % (Auto) 0.9 (0.0-7.0) % Baso % (Auto) 0.5 (0.0-3.0) % Neut # (Auto) 3.55 (1.7-7.0) K/uL Lymph # (Auto) 1.76 (0.90-2.90) K/uL [place] # (Auto) 0.40 (0.00-0.90) K/UL Eos # (Auto) 0.05 (0.00-0.50) K/uL Baso # (Auto) 0.03 (0.00-0.30) K/uL Abs Immat Gran (auto) 0.02 (0.00-0.30) K/uL Imm/Tot Granulo (auto) 0.3 % INR 0.92 (0.91-1.10) APTT 23 (23-33) Seconds Sodium 137 (135-149) mmol/L Potassium 4.3 (3.6-5.1) mmol/L Chloride 101 (96-114) mmol/L Carbon Dioxide 29 (20-32) mmol/L Anion Gap 7 (7-15) mEq/L BUN 19 (7-30) mg/dL Creatinine 1.2 (0.5-1.5) mg/dL Estimated Creat Clear 70.13 Estimated GFR 71 ml/min Glucose 94 (60-115) mg/dL Calcium 9.2 (8.4-10.6) mg/dL Total Bilirubin 0.6 (0.1-1.5) mg/dL Direct Bilirubin 0.2 (0.0-0.5) mg/dL AST 46 H (12-35) U/L ALT 31 (4-50) U/L Alkaline Phosphatase 39 L (40-150) U/L C-Reactive Protein < 0.5 L (0.5-1.0) mg/dL NT-Pro-B Natriuret Pep 394 H (See Note) pg/mL Total Protein 7.6 (6.0-8.3) g/dL Albumin 4.5 (3.3-5.0) g/dL Ethyl Alcohol < 0.01 (0.01-0.03) % SARS-CoV-2 (PCR) Negative SARS-CoV-2 (Negative) Influenza Type A (PCR) Negative PCR FLU A (Negative) Influenza Type B (PCR) Negative PCR FLU B (Negative) RSV (PCR) Negative PCR RSV (Negative) POC Glucose 99 (60-115) mg/dl POC Troponin I 0.01 (0.01-0.04) ng/ml Discharge Plan Discharge Clinical Impression: Numbness and tingling of right arm and leg Patient Disposition: Home w/ Parent or Adult Condition: Stable Additional Instructions: Continue home medications and especially your blood thinner, would recommend adding 81 mg aspirin daily as recommended by the neurologist. Would recommend you see your regular doctor next week and get an MRI scan of your head to follow-up this episode. Return to ED sooner problems or concerns. Recommend light activity. Recommend you do not drive for the next week until this clarifies. Activity Level: Light activity Discharge Diet: Low Fat/Low Cholesterol Prescriptions: No Action multivitamin [Multiple Vitamins] Tablet 1 tab PO QDAY spironolactone 25 mg tablet 12.5 mg PO DAILY valsartan 40 mg tablet PO BID rosuvastatin 20 mg tablet 20 mg PO QPM Jardiance 10 mg tablet 10 mg PO DAILY nitroglycerin 0.4 mg tablet, sublingual See Rx Instructions .ROUTE .COMPLEX Qty: 25 5RF Dose Instruction: TAKE 1 TABLET UNDER TONGUE EVERY 5-15 MINUTES NEEDED FOR CHEST PAIN. MAX 3 DAYS Rx Instructions: TAKE 1 TABLET UNDER TONGUE EVERY 5-15 MINUTES NEEDED FOR CHEST PAIN. MAX 3 DAYS amiodarone 200 mg tablet 200 mg PO QDAY Qty: 90 5RF metoprolol succinate 25 mg tablet extended release 24 hr 25 mg PO DAILY Qty: 30 2RF Eliquis 5 mg tablet 5 mg PO BID Qty: 60 0RF tizanidine 4 mg tablet 4 mg PO Q8H PRN (Reason: muscle spasticity) Qty: 30 1RF Follow Up/Referrals: Ernesto Miles MD [Primary Care Provider, Family Practice] Stand Alone Forms: [employer] Info Instructions
[2024-12-14 08:33] LABS: Glucose, Point-of-Care* 99 mg/dl (60-115)
[2024-12-14 08:43] LABS: Hematocrit 47.5 % (37.0-53.0); Hemoglobin* 16.0 gm/dL (13.5-17.5); Immature Granulocytes Abs Auto 0.02 K/uL (0.00-0.30); Immature Granulocytes Pct Auto 0.3 %; Lymphocytes Absolute Auto 1.76 K/uL (0.90-2.90); Mean Corpuscular HGB Conc 34 gm/dL (32-36); Mean Corpuscular Hemoglobin 31 pg (26-34); Mean Corpuscular Volume 92 fL (80-100); RDW Coefficient of Variation % 11.5 % (11.5-15.5); Red Blood Count 5.15 m/uL (4.30-5.90); White Blood Count* 5.85 K/uL (4.50-11.00)
[2024-12-14 08:44] LABS: Slide Review Reflex No
[2024-12-14 08:58] LABS: Troponin, Point-of-Care* 0.01 ng/ml (0.01-0.04)
[2024-12-14 09:02] LABS: Albumin* 4.5 g/dL (3.3-5.0); Chloride* 101 mmol/L (96-114); Sodium* 137 mmol/L (135-149)
[2024-12-14 09:03] LABS: Potassium* 4.3 mmol/L (3.6-5.1)
[2024-12-14] MEDS: 0.9 % SODIUM CHLORIDE 500 ML 500 ML IV (09:04)
[2024-12-14 09:05] LABS: Blood Urea Nitrogen* 19 mg/dL (7-30); Creatinine* 1.2 mg/dL (0.5-1.5); Est. Creatinine Clearance* 70.13; Estimated Glomerular Filt Rate 71 ml/min
[2024-12-14 09:06] LABS: Alanine Aminotransferase* 31 U/L (4-50); Alkaline Phosphatase* 39 U/L (40-150); Anion Gap 7 mEq/L (7-15); Aspartate Amino Transferase* 46 U/L (12-35); Bilirubin Direct* 0.2 mg/dL (0.0-0.5); Bilirubin Total* 0.6 mg/dL (0.1-1.5); Calcium* 9.2 mg/dL (8.4-10.6); Carbon Dioxide* 29 mmol/L (20-32); Glucose* 94 mg/dL (60-115); INR 0.92 (0.91-1.10); Prothrombin Time 13.2 Seconds; Total Protein* 7.6 g/dL (6.0-8.3)
[2024-12-14 09:09] LABS: Ethanol* < 0.01 % (0.01-0.03)
[2024-12-14 09:16] LABS: NT Pro B Type NatriureticPept* 394 pg/mL (See Note)
[2024-12-14 09:21] LABS: PCR FLU A Negative PCR FLU A (Negative); PCR FLU B Negative PCR FLU B (Negative); PCR RSV Negative PCR RSV (Negative); SARS PCR* Negative SARS-CoV-2 (Negative)
[2024-12-14] MEDS: ASPIRIN 81 MG TAB.CHEW PO (09:25)
== END 2024-12-14 09:32 | disposition home or self-care (01) ==
PROVIDERS: Emergency Provider Family Medicine; PCP Family Medicine
DX: R20.0 Anesthesia of skin (principal)
CPT/HCPCS: 36415; 70450; 70496; 70498; 80048; 80076; 82077; 82947; 83880; 84484; 85025; 85610; 85730; 86140; 87631; 99284; 99285; A9270; J7030; Q9967

== ENCOUNTER 2025-01-04 19:43 | Emergency (ER) | payer BC, SELFPAY ==
--- OUTSIDE RECORDS SUMMARY | 2025-01-04 19:45 | XMS_ITS | Clinical Summary ---
Author Organization [employer] [facility] Address [address] [place] [address] Care Team Providers Care Assistant Manager/Embalmer Name Role Phone Ernesto Miles MD Primary Care Provider [phone] Key Balderas MEAT STUFFER Unavailable [phone] Allergies No known active allergies Medications nitroglycerin [...] tachycardia (HC),Cardiomyopa thy, ischemic,Left ventricular thrombus without [place] (HC),ASHD (arterioscleroti c heart disease) Take 1 Tablet (40 mg) by mouth two times daily. 180 Tablet 3 5 Active spironolactone 25 mg tabletIndication s:Ventricular tachycardia (HC),Cardiomyopa thy, ischemic,Left ventricular thrombus without [place] (HC),ASHD (arterioscleroti c heart disease) Take 1/2 tablet by mouth daily 45 Tablet 3 5 Active empagliflozin (Jardiance) 10 mg tabletIndication s:Ventricular tachycardia (HC),Cardiomyopa thy, ischemic,Left ventricular thrombus without [place] (HC),ASHD (arterioscleroti c heart disease) Take 1 [...] disease) 02/22/2021 Overview (02/22/2021): - 2009 large KY - 01/27/12- [facility]/ thrombectomy pLAD Left ventricular thrombus without [place] 06/28/2017 Overview (02/22/2021): - LV thrombus noted in 2018 in setting of CVA: coumadin started at that time - Switched from coumadin to Xarelto May 2020 while at [place] * admittedly not always compliant with coumadin [...] 2020 switched to Xarelto by Hematology at [place]: admitted not always compliant with warfarin - [...] Date LV (left ventricular) mural thrombus following [place] 06/27/2017 06/28/2017 Examination of participant o r control in clinical research 04/10/2012 03/30/2017 Encounters Date Type Department Care Team Description 12/14/2024 Orders Only [facility] Scanner 1 scan: (1-Ord) ATRIAL PACED EHYTHM, 12/14/2024 12/14/2024 Orders Only [facility] Scanner 1 scan: (1-Ord) [facility], HEAD/BRAIN WO CON, 12/14/2024 12/14/2024 Orders Only [facility] Scanner 1 scan: (1-Ord) [facility], ANGIO HEAD, 12/14/2024 12/14/2024 Orders Only [facility] Scanner 1 scan: (1-Ord) [facility], ANGIO NECK, 12/14/2024 12/14/2024 Orders Only [facility] Scanner 1 scan: (1-Ord) [facility], MULTIPLE LABS, 12/14/2024 12/14/2024 Office Visit [facility] [address] [place] [id number] Fan Townsend MBBS Telehealth ([facility]) 12/14/2024 Telephone [facility] [address] [place] [address] Fan Townsend MBBS from Last 3 Months Immunizations Immunization Administration [...] on file Legal Sex Male 6:02 AM 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 Gender Identity Not on file Sexual Orientation [...] 2017 Depression screening for age 12+ 04/20/2022 04/20/19 22, 03/10/2021 COVID-19 vaccine series ( - season) 2024 Influenza Vaccine (#1) 2024 05/14/2020 [...] Completed 03/18/2012 Medical Devices Implanted Type Area Coil Binder Device Identifier Shelf Expiration Date Model / Serial / Lot Tissue Pericardium 6x8cm [employer]ovine - [id number] Implanted:Qty: 1 on 02/28/2021 by Myron Vera MD at [facility] N/A: Heart [employer] 11/20/2022 PFP [id number] / / [id number] Procedures Procedure Name Priority Date/Time Associated Diagnosis Comments SCAN-ELECTROCARDIOGRAM EKG 12/14/2024 12:00 AM CDT SCAN-LABORATORY REPORT 12:00 AM CDT SCAN-CT INTERPRETATION 5 12:00 AM CDT SCAN-CT INTERPRETATION 5 12:00 AM CDT SCAN-CT INTERPRETATION 5 12:00 AM CDT LIPID PANEL Early AM 08/04/2023 10:06 AM CDT ANTI HIV 1/2 Timed 03/18/2012 10:52 AM 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 ANTI HCV Timed 03/18/2012 10:52 AM 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 from Last 3 Months or Most Recently Relevant to Health Maintenance Results * SCAN-LABORATORY REPORT (12/14/2024 12:00 AM CDT) us Scanner OTHER Final Result * SCAN-CT INTERPRETATION (12/14/2024 12:00 AM CDT) Only the most recent of3 resultswithin the time period is included. Anatomical Region Laterality Modality Other us Scanner OTHER Final Result * SCAN-ELECTROCARDIOGRAM EKG (12/14/2024 12:00 AM CDT) us Scanner OTHER Final Result * (ABNORMAL) Lipid Panel (08/04/2023 10:06 AM CDT) CHOLESTEROL,TOTAL 239(H) 100 - 199 mg/dL 08/04/2023 11:15 AM CDT [facility] Comment: Cholesterol, Total Reference Ranges Desirable <200 mg/dL Borderline 200-239 mg/dL High >=240 mg/dL TRIGLYCERIDES 194(H) <150 mg/dL 08/04/2023 11:15 AM [facility] HDL CHOLESTEROL 57 >40 mg/dL 11:15 AM [facility] NON-HDL CHOLESTEROL 182(H) <145 mg/dl 08/04/2023 11:15 AM [facility] CHOL/HDL RATIO 4.19 <4.50 08/04/2023 11:15 AM [facility] LDL CHOLESTEROL 143(H) <=130 mg/dL 08/04/2023 11:15 AM [facility] VLDL CHOLESTEROL 39(H) <=30 mg/dL 08/04/2023 11:15 AM [facility] PROVIDER ORDERED STATUS RANDOM 08/04/2023 11:15 AM [facility] Blood BLOOD SPECIMEN / Unknown Butterfly / Unknown 08/04/2023 10:06 AM CDT 08/04/2023 10:51 AM T us Derick Hill DO CHEMISTRY Fi nal Result [facility] SENDOUT INTERNAL ZIP [id number] [address] [place] [address] * ANTI HCV (03/18/2012 10:52 AM 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) ANTI HCV Non-reacti ve [facility] 03/18/2012 10:5 2 AM 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 03/18/2012 11:11 AM 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 us Doctor Unknown SEND OUTS Final Result [facility] INTERNAL ZIP [id number] [place] [address] * ANTI HIV 1/2 (03/18/2012 10:52 AM 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) ANTI HIV 1/2 Non-reacti ve [facility] 03/18/2012 10:5 2 AM 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 03/18/2012 11:11 AM 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 us Doctor Unknown SEND OUTS Final Result [facility] INTERNAL ZIP [id number] [place] [phone] from Last 3 Months or Most Recently Relevant to Health Maintenance Insurance [employer] MA INMATE BILLING [facility] [address] [place] [id number] [employer]ANCE * Guarantor: [employer] Account Type Relation to Patient Date of Phone Billing Address [facility] [address] ATTN ACCTS PAYABLE [address] [place] [address] Advance Directives * Full Code (Latest Code [...] Comments Code Status Discussion: Discussed Care Teams Assistant Manager/Embalmer Relationship Specialty Start Date End Date Ernesto Miles MD PCP - General Family Practice 01/27/12 Key Balderas NP [address] [facility] [address] [place] [address] Nurse Practitioner Cardiology - Electrophysiology 07/04/23
--- OUTSIDE RECORDS SUMMARY | 2025-01-04 19:45 | XMS_ITS | Clinical Summary ---
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 For routine questions regarding patient records, call [phone] during business hours, M-F 8:00 AM - 5:00 PM Central Time. Record requests for emergency care only can be directed to [phone] at any time.[facility] Allergies No known active allergies Medications * [...] hours as needed for pain. Active multivitamin-mi qfmqpt-TV-pxjpo hallie-lutein (CENTRUM SILVER) 0.4-300-250 mg-mcg-mcg tablet Take [...] (05/10/2020): Added automatically from request for surgery [id number] Radiculopathy Cervical Seventh 05/07/2020 Nicotine Dependence 05/07/2020 Hypertension Essential Primary 03/03/2020 Hyperlipidemia Mixed 03/03/2020 Snf (Current) Anticoagulant Treatment 02/08 Cerebral Infarction Due [...] e alcohol) Been sober for 1651 days [facility] Utilities Answer Date Recorded In the past [...] your living situation today? I have a [facility] place to live 07/09/2024 Education Answer Date Recorded What is the highest level of school you have completed or the highest degree you have received? Associate degree: occupational, technical, or vocational program 05/12/2020 Sex and Gender Information Value Date Recorded Sex Assigned at Male 07/10/2024 12:51 PM CDT Legal Sex Male 9:32 PM PHOTO GRAPHICS LIBRARIAN Gender Identity Male 06/23/2020 9:05 AM CDT Sexual Orientation Straight 07/10/2024 2: 25 PM CDT Last Filed Vital Signs Vital Sign Reading Time Taken Comments Blood Pressure 134/88 04/10/2024 2:30 PM PHOTO GRAPHICS LIBRARIAN Pulse 54 04/10/2024 2:30 PM PHOTO GRAPHICS LIBRARIAN Temperature 36.5 C (97.7 F) 04/10/2024 11:15 AM PHOTO GRAPHICS LIBRARIAN Respiratory Rate 15 04/10/2024 2:30 PM PHOTO GRAPHICS LIBRARIAN Oxygen Saturation 92% 04/10/2024 2:30 PM PHOTO GRAPHICS LIBRARIAN Inhaled Oxygen Concentration - - Weight 68.1 [...] this topic Medical Devices Implanted Type Area Wire Straightening Machine Operator Device Identifier Shelf Expiration Date Model / Serial / [facility] [id number] - [id number] Implanted:Q ty: 1 on 05/13/2020 by Marky Newman M.D. at [facility] Bone or Tissue Anterior: Spine Cervical Medtronic 01/25/2022 [id number] / [id number] / Hardware E.G. Pins/Screws /Rods-2017 Implanted:0 10/04/2017 (Quantity not on file) Hardware e.g. pins/screws/emma s Right: Shoulder Spn Plt Tomy L2 30 - [id number] Implanted:Q ty: 1 on 05/13/2020 by Marky Newman M.D. at [facility] Hardware e.g. pins/screws/emma s Anterior: Spine Cervical Depuy Synthes [id number] / / Spn Scrw Tomy Sfdr Thrd 4x14 - [id number] Implanted:Q ty: 5 on 05/13/2020 by Marky Newman M.D. at [facility] Hardware e.g. pins/screws/emma s Anterior: Spine Cervical Depuy Synthes [id number] / / Spn Scrw Tomy Sfdr Thrd 4.5x14 - [id number] Implanted:Q ty: 1 on 05/13/2020 by Marky Newman M.D. at [facility] Hardware e.g. pins/screws/emma s Anterior: Spine Cervical Depuy Synthes [id number] / / Medtronic Prather Xt Dr [id number] Implant Cardiac Defibrillator Medtronic COBALT XT / [id number] / Spn Cg Cndt Cif 6mm 8d S - [id number] Implanted:Q ty: 1 on 05/13/2020 by Marky Newman M.D. at [facility] Spine Implant Anterior: Spine Cervical Depuy Synthes [id number] / / [id number] Spn Cg Cndt Cif 6mm 8d S - [id number] Implanted:Q ty: 1 on 05/13/2020 by Marky Newman M.D. at [facility] Spine Implant Anterior: Spine Cervical Depuy Synthes [id number] / / [id number] Stent Other-02/03 Implanted:1 (Quantity not on file) Stent Other Heart Description:coronary artery stent/No card Explanted Type Area Wire Straightening Machine Operator Device Identifier Shelf Expiration Date Model / Serial / Lot Spn Bharti Leone Thrd 4x14 - [id number] Implanted:Se Marky amaya M.D. (Quantity not on file) Explanted:Qt y: 1 on 05/13/2020 by Marky Newman M.D. at [facility] Hardware e.g. pins/screws /rods Anterior: Spine Cervical Depuy Synthes [id number] / / Procedures Procedure Name Priority Date/Time Associated Diagnosis Comments BASIC METABOLIC PANEL, S/P STAT 04/10/2024 11:12 AM PHOTO GRAPHICS LIBRARIAN from Last 3 Months or Most Recently Relevant to Health Maintenance Results * (ABNORMAL) Basic Metabolic Panel (04/10/2024 11:12 AM PHOTO GRAPHICS LIBRARIAN) Pathologist [facility] Potassium, P 4.2 3.6 - 5.2 mmol/L 04/10/2024 11:37 AM PHOTO GRAPHICS LIBRARIAN [facility] Sodium, P 141 135 - 145 mmol/L 04/10/2024 11:37 AM PHOTO GRAPHICS LIBRARIAN [facility] Chloride, P 105 98 - 107 mmol/L 04/10/2024 11:37 AM PHOTO GRAPHICS LIBRARIAN [facility] Bicarbonate, P 26 22 - 29 mmol/L 04/10/2024 11:37 AM PHOTO GRAPHICS LIBRARIAN [facility] Anion Gap, P 10 7 - 15 04/10/2024 11:37 AM PHOTO GRAPHICS LIBRARIAN [facility] BUN (Blood Urea Nitrogen), P 14 8 - 24 mg/dL 04/10/2024 11:37 AM PHOTO GRAPHICS LIBRARIAN [facility] Creatinine 1.18 0.74 - 1.35 mg/dL 04/10/2024 11:37 AM PHOTO GRAPHICS LIBRARIAN [facility] Estimated GFR (eGFR) 72 >=60 mL/min/BSA 04/10/2024 11:37 AM PHOTO GRAPHICS LIBRARIAN [facility] Comment: Estimated GFR calculated using the 2020 CKD_EPI creatinine equation. Calcium, Total, P 9.3 8.6 - 10.0 mg/dL 04/10/2024 11:37 AM PHOTO GRAPHICS LIBRARIAN [facility] Glucose, P 69(L) 70 - 140 mg/dL 04/10/2024 11:37 AM PHOTO GRAPHICS LIBRARIAN [facility] Blood (Blood, Venous) 04/10/2024 11:12 AM PHOTO GRAPHICS LIBRARIAN 04/10/2024 11:16 AM PHOTO GRAPHICS LIBRARIAN Brandin Edwards M.D. LAB BLOOD ADD-ON Final Resul t [facility] [address] [place] [address], [facility] [place] [address] [place] [address] from Last 3 Months or Most Recently Relevant to Health Maintenance Insurance [facility] [place] [address] Advance Directives For more information, please contact: [phone] * Full Code (Latest Code Status on File) Date Activated Date Inactivated Comments 03/03/2020 12:12 PM 03/05/2020 3:41 PM Question Answer Comments Full Code: Discussed Care Teams Casino Cage Supervisor Relationship Specialty Start Date End Date Elsewhere, Pcp PCP - General Internal Medicine 06/04/19
[2025-01-04 20:03] VITALS: BP 132/88; PULSE 90; RESP 19; TEMP 36.6; O2SAT 99; BMI 21.7
--- NOTE | 2025-01-04 20:05 | ED.LOWEXIN ---
HPI - Extremity Injury (Lower) General Time Seen by Provider: 20:05 Date Seen: 01/04/25 Chief Complaint: Extremity Pain/Injury, Lower Stated Complaint: Right Leg numbness Time Seen by Provider: 01/04/25 20:04 Source: patient Mode of arrival: ambulatory Limitations: no limitations History of Present Illness HPI Narrative: 59-year-old male with history of NSTEMI, hypertension, CVA who presents today with right leg numbness. He notes that this morning woke up and noticed some numbness around his kneecap, and moved down the leg during the course the day. Says this is decreased sensation, he has not noticed any leg weakness but says knee did buckle earlier today. He does not notice any pain or numbness in the foot. Related Data Home Medications ?Medication ?Instructions ?Recorded ?Confirmed multivitamin (Multiple Vitamins 1 tab PO QDAY 12/06/21 01/04/25 tablet) rosuvastatin 20 mg tablet 20 mg PO QPM 07/15/24 01/04/25 spironolactone 25 mg tablet 12.5 mg PO DAILY 07/15/24 01/04/25 valsartan 40 mg tablet 40 mg PO DAILY 07/15/24 01/04/25 empagliflozin 10 mg tablet 10 mg PO DAILY 07/30/24 01/04/25 (Jardiance) Previous Rx's ?Medication ?Instructions ?Recorded nitroglycerin 0.4 mg sublingual See Rx Instructions .Route 02/10/22 tablet .COMPLEX #25 tabs amiodarone 200 mg tablet 200 mg PO QDAY #90 tabs 06/30/24 metoprolol succinate 25 mg 25 mg PO DAILY #30 tabs 07/31/24 tablet,extended release 24 hr apixaban 5 mg tablet (Eliquis) 5 mg PO BID #60 tabs 08/26/24 Allergies Allergy/AdvReac Type Severity Reaction Status Date / Time oxycodone (From Percocet) Allergy Unknown N/V Verified 01/04/25 20:18 [facility] Medical History Aneurysm of heart ?I25.3 - Aneurysm of heart (ICD-10) Metatarsal fracture ?S92.309A - Fracture of unspecified metatarsal bone(s), unspecified foot, initial encounter for closed fracture (ICD-10) History of cerebrovascular accident (CVA) due to embolism ?Z86.73 - Personal history of transient ischemic attack (TIA), and cerebral infarction without residual deficits (ICD-10) Surgical History Status post internal cardiac defibrillator procedure ?Z95.810 - Presence of automatic (implantable) cardiac defibrillator (ICD-10) History of shoulder surgery (12/08/16) ?Z98.890 - Other specified postprocedural states (ICD-10) History of coronary artery stent placement ?Z95.5 - Presence of coronary angioplasty implant and graft (ICD-10) History of cervical spinal arthrodesis ?Z98.1 - Arthrodesis status (ICD-10) Social History Narrative: Single Retired No children Never smoke Alcohol abuse What is your current living situation?: I presently have a place to live Problems where you live: no known problems In the past 12 months, utilities in danger of being shut off: no In past 12 months, lack of transportation kept you from medical appts, meetings, work, or getting things needed for daily living: no In the past 12 mos, have been you worried that your food would run out before you had money to buy more?: never true In the past 12 mos, the food you bought just didn't last and you didn't have money to buy more?: never true Smoking Status: Never smoker Do you use any of these nicotine containing products: None How often do you have a drink containing alcohol: never How often do you have six or more drinks on one occasion: Never AUDIT-C Alcohol total score: 0 Non-prescribed substance use: denies use How often does anyone, including family, friends and others, physically hurt you: never How often does anyone, including family, friends and others, insult or talk down to you: never How often does anyone, including family, friends and others, threaten you with harm: never How often does anyone, including family, friends and others, scream or curse at you: never service: No Exam Narrative: Exam Narrative: General: well nourished , NAD Head: Atraumatic and normocephalic ENT: External ears and external nose are normal Eyes: Conjunctiva clear, pupils are equal reactive, external ocular motions are intact Neck: Full spontaneous range of motion of the neck Lungs: No respiratory distress Musculoskeletal: No tenderness or deformity Neurologic: Decreased sensation of the medial distal 1/4 of the left right thigh, right medial knee, and about proximal 2/3 of the medial lower leg. Dorsalis pedis and posterior tibialis pulses are intact, capillary refill is normal, both feet are cool with symmetric warmth started the ankles bilaterally. No weakness with plantar flexion or dorsiflexion on either side, mild weakness of straight leg raise on the right, knee flexion and extension are intact. Skin: No rashes Psych: Mood and affect are appropriate Const: Vital Signs, click to edit/add: Vital Signs - 24 hr 01/04/25 20:03 Temperature 97.8 F Pulse Rate [Right Pulse Oximeter] 90 Respiratory Rate 19 Blood Pressure [Ri ght Upper Arm] 132/88 Pulse Oximetry 99 Oxygen Delivery Me thod Room Air Course Course ED Course: Reviewed most recent emergency department visit from December and patient was seen with numbness and tingling of the right arm and leg, CTA negative at that time, plan for outpatient MRI which has not been done. Patient presents today with right leg numbness starting this morning. On exam is decreased sensation of the medial distal upper leg, medial knee, and proximal lower leg. Both feet are cool, dorsalis pedis and and posterior tibialis pulses are palpable and symmetric bilaterally, no indication of arterial thrombus. There is no swelling of either leg no calf tenderness to suggest DVT, additionally patient is anticoagulated although he does have some issues with compliance. Strength is intact of the right lower extremity other than with hip flexion. Compartments of the lower and upper leg are all soft and nontender, no indication of compartment syndrome. Symptoms are most consistent with neurapraxia, patient be started on a Medrol Dosepak and follow up with primary care for further evaluation and treatment. Vital Signs Vital signs: Initial Vital Signs Temperature 97.8 F 01/04/25 20:03 Temperature Source Temporal Artery Scan 01/04/25 20:03 Pulse Rate 90 01/04/25 20:03 Pulse Rhythm Regular 01/04/25 20:03 Respiratory Rate 19 01/04/25 20:03 Blood Pressure 132/88 01/04/25 20:03 Blood Pressure Mean 102 01/04/25 20:03 Blood Pressure Position Sitting 01/04/25 20:03 Pulse Oximetry 99 01/04/25 20:03 Oxygen Delivery Method Room Air 01/04/25 20:03 Vital Signs Temperature 97.8 F 01/04/25 20:03 Pulse Rate 90 01/04/25 20:03 Respiratory Rate 19 01/04/25 20:03 Blood Pressure 132/88 01/04/25 20:03 Pulse Oximetry 99 01/04/25 20:03 Oxygen Delivery Method Room Air 01/04/25 20:03 Temperature 97.8 F 01/04/25 20:03 Pulse Rate 90 01/04/25 20:03 Respiratory Rate 19 01/04/25 20:03 Blood Pressure 132/88 01/04/25 20:03 Pulse Oximetry 99 01/04/25 20:03 Oxygen Delivery Method Room Air 01/04/25 20:03 Discharge Plan Discharge Clinical Impression: Neurapraxia of right lower extremity Patient Disposition: Home, Self-Care Condition: Stable Instructions: Neurapraxia (ED) Additional Instructions: Activity as tolerated Take prednisone as prescribed Follow-up with primary care this week Activity Level: Activity as Tolerated Discharge Diet: Regular Prescriptions: No Action multivitamin [Multiple Vitamins] Tablet 1 tab PO QDAY spironolactone 25 mg tablet 12.5 mg PO DAILY valsartan 40 mg tablet 40 mg PO DAILY rosuvastatin 20 mg tablet 20 mg PO QPM Jardiance 10 mg tablet 10 mg PO DAILY nitroglycerin 0.4 mg tablet, sublingual See Rx Instructions .ROUTE .COMPLEX Qty: 25 5RF Dose Instruction: TAKE 1 TABLET UNDER TONGUE EVERY 5-15 MINUTES NEEDED FOR CHEST PAIN. MAX 3 DAYS Rx Instructions: TAKE 1 TABLET UNDER TONGUE EVERY 5-15 MINUTES NEEDED FOR CHEST PAIN. MAX 3 DAYS amiodarone 200 mg tablet 200 mg PO QDAY Qty: 90 5RF metoprolol succinate 25 mg tablet extended release 24 hr 25 mg PO DAILY Qty: 30 2RF Eliquis 5 mg tablet 5 mg PO BID Qty: 60 0RF Follow Up/Referrals: Enresto Miles MD [Primary Care Provider, Family Practice] Stand Alone Forms: MyHealth Info Instructions
== END 2025-01-04 20:56 | disposition home or self-care (01) ==
PROVIDERS: Emergency Provider Family Medicine; PCP Family Medicine
DX: S84.91XA Injury of unspecified nerve at lower leg level, right leg, initial encounter (principal)
CPT/HCPCS: 99283